=== PATIENT | female | born 1970 | race Caucasian/White ===

== ENCOUNTER 2018-02-18 12:04 | Emergency (ER) | payer OTHER, SELFPAY | END 2018-02-18 18:05 | disposition home or self-care (01) | DX: R07.9 Chest pain, unspecified (principal) | CPT/HCPCS: 36415; 71010; 71045; 80053; 84484; 85025; 85379; 85610; 93005; 93010; 96360; 99058; 99285 ==

== ENCOUNTER 2019-05-31 10:51 | Emergency (ER) | payer OTHER, SELFPAY ==
[2019-05-31 10:52] VITALS: BP 127/86; PULSE 90; RESP 18; TEMP 36.7; O2SAT 100
[2019-05-31 11:30] VITALS: BP 115/81; PULSE 75; O2SAT 100
[2019-05-31] MEDS: predniSONE 20 MG TABLET 40 MG PO (11:52)
[2019-05-31] MEDS: diphenhydrAMINE 25 MG TABLET 50 MG PO (11:52)
[2019-05-31 12:30] VITALS: BP 122/77; PULSE 65; RESP 17; O2SAT 98
[2019-05-31 13:30] VITALS: BP 124/82; PULSE 68; RESP 18; O2SAT 98
--- NOTE | 2019-05-31 23:14 | ED.ALLEREA ---
HPI - Allergic Reaction < PATRICK Zacarias - Last Filed: 05/31/19 23:38> General Chief complaint: Allergic Reaction Stated complaint: Rash On stomach,Chest pain Time Seen by Provider: 05/31/19 11:23 Source: patient and family Mode of arrival: ambulatory Limitations: no limitations History of Present Illness HPI narrative: This is a 48 year old female, nonsmoker, presents with her spouse with mildly pruritus, fine macular/papular rash in her upper body and upper legs and arms. She noticed when she woke up this morning. Denies dyspnea, short of breath, oropharyngeal swelling, chest pain. She denies exposure to new food, medication, skin products, detergents. She had used Benadryl cream and Xyzal this morning. Related Data Home Medications Medication Instructions Recorded Confirmed CHOLECALCIFEROL (VITAMIN D3) #0 05/08/12 (Vitamin D) Esterified Estrogens/Methylt- 1 tab PO QDAY #0 05/08/12 (#ESTRATEST) SALMETEROL XINAFOATE (SEREVENT 1 puff INH BIDRT #0 05/08/12 DISKUS) fluticasone propionate [Flovent 2 spray INH BID #0 05/08/12 HFA] loratadine [Claritin] 10 mg PO QDAY #0 05/08/12 Previous Rx's Medication Instructions Recorded prednisone 40 mg PO DAILY 5 Days #10 tab 05/31/19 ranitidine HCl [Zantac] 150 mg PO DAILY #7 tab 05/31/19 Allergies Allergy/AdvReac Type Severity Reaction Status Date / Time iodine [IODINE] Allergy Severe ANAPHYLAXIS Verified 05/31/19 11:07 shellfish derived Allergy Mild N/V Verified 05/31/19 11:07 [SHELLFISH DERIVED] aspirin [ASPIRIN] AdvReac Mild N/V Verified 05/31/19 11:07 etodolac [From LODINE] AdvReac Mild N/V Verified 05/31/19 11:07 meperidine [From DEMEROL] AdvReac Mild N/V Verified 05/31/19 11:07 oxycodone [OXYCODONE] AdvReac Mild N/V Verified 05/31/19 11:07 venom-honey bee AdvReac Mild N/V Verified 05/31/19 11:07 [BEE VENOM (HONEY BEE)] Review of Systems <PATRICK Steel - Last Filed: 05/31/19 23:38> Review of Systems General: Denies fever, chills, fatigue, malaise, sweats. HEENT: Denies sinus pain, ear pain, sore throat, difficulty swallowing, dizziness. Respiratory: Denies dyspnea, cough, wheezing, hemoptysis, sputum. Cardiovascular: Denies chest pain, palpitations, orthopnea, edema. Gastrointestinal: Denies nausea, vomiting, abdominal pain, diarrhea, constipation, melena. : Denies dysuria, frequency, incontinence, hematuria, urinary retention. Musculoskeletal: Denies weakness, joint pain or bony pain. Skin: See HPI Neurologic: Denies weakness, headache, numbness, change in speech, confusion, seizures, incoordination. Psychiatric: No concerning psychosocial issues. 12-point review of systems is negative except for those stated above. PFSH <PATRICK Steel - Last Filed: 05/31/19 23:38> Medical History Osteoarthritis (Acute) Seasonal allergic reaction (Acute) History of hysterectomy (Chronic) Surgical History History of appendectomy (Chronic) Social History Smoking Status: Never smoker Social History Smoking Status: Never smoker Exam <PATRICK Steel - Last Filed: 05/31/19 23:38> Narrative Exam Narrative: GEN: Alert, oriented x 3, well appearing and nourished, and in no acute distress. Head: Normal cephalic, atraumatic. No scalp or temporal tenderness, palpable mass or rash. EYES: Pupils are equal, round, and reactive to light and accommodation. Extraocular muscles are intact bilaterally. There is no subconjunctival hemorrhage, exudate and sclera non-icteric. ENT: Bilateral auditory canals. Nose without bleeding, purulent discharge, septal hematoma or deviation. Turbinate without erythema or swelling. Facial sinuses nontender to palpate. Mucous membrane moist, no mucosal lesion. Throat without erythema, tonsillar hypertrophy or exudate. Uvula in midline, airway patent. Neck: Trachea in midline. No JVD, non-tender without lymphadenopathy. No masses or thyroid megaly. Supple, non-tender and no meningeal signs. CARDIAC: Normal regular rate and rhythm without murmurs, gallops, or rubs. No chest wall tenderness. No peripheral edema, cyanosis or pallor. Capillary refill is less than 2 seconds. RESPIRATORY: Lungs are cleat to auscultate bilaterally. No cough, wheezes, rales, or rhonchi. No stridor, respiratory distress, increase work of breathing, or accessary muscle used. ABD: Abdomen soft, nontender and non-distended. No guarding or rebound tenderness to palpate. Bowel sounds are normal in all 4 quadrants. There is no palpable masses or organomegaly. EXT: Full painless ROM of all extremities with no loss of sensation, strength, effusion or edema. SKIN: Erythema, fine maculopapular rash in bilateral arms, back, chest and abdomen. BACK: Nontender without deformity or crepitance. No flank tenderness. NEUROLOGICAL: Alert and oriented to place, time and person. Sensation and motor function intact bilaterally. No facial droops, dysphasia. PSYCHIATRIC: Good judgement and reason, without hallucinations, abnormal affect or abnormal behaviors during the examination. Initial Vital Signs Initial Vital Signs: Vital Signs Temperature 98.1 F 05/31/19 10:52 Pulse Rate 90 05/31/19 10:52 Respiratory Rate 18 05/31/19 10:52 Blood Pressure 127/86 05/31/19 10:52 Pulse Oximetry 100 05/31/19 10:52 <Robe Justice DO - Last Filed: 06/01/19 19:23> Initial Vital Signs Initial Vital Signs: Vital Signs Temperature 98.1 F 05/31/19 10:52 Pulse Rate 90 05/31/19 10:52 Respiratory Rate 18 05/31/19 10:52 Blood Pressure 127/86 05/31/19 10:52 Pulse Oximetry 100 05/31/19 10:52 Course <PATRICK Steel - Last Filed: 05/31/19 23:38> Orders Ordered: Discontinued Medications Diphenhydramine HCl (Benadryl) 50 mg PO NOW ONE Stop: 05/31/19 11:34 Last Admin: 05/31/19 11:52 Dose: 50 mg Prednisone (Deltasone) 40 mg PO NOW ONE Stop: 05/31/19 11:34 Last Admin: 05/31/19 11:52 Dose: 40 mg Ranitidine HCl (Zantac) 150 mg PO NOW ONE Stop: 05/31/19 11:34 Last Admin: 05/31/19 11:52 Dose: 150 mg <Robe Justice DO - Last Filed: 06/01/19 19:23> Orders Ordered: Discontinued Medications Diphenhydramine HCl (Benadryl) 50 mg PO NOW ONE Stop: 05/31/19 11:34 Last Admin: 05/31/19 11:52 Dose: 50 mg Prednisone (Deltasone) 40 mg PO NOW ONE Stop: 05/31/19 11:34 Last Admin: 05/31/19 11:52 Dose: 40 mg Ranitidine HCl (Zantac) 150 mg PO NOW ONE Stop: 05/31/19 11:34 Last Admin: 05/31/19 11:52 Dose: 150 mg MDM - Allergic Reaction <PATRICK Steel - Last Filed: 05/31/19 23:38> Differential Diagnosis Differential diagnosis: Likely allergic reaction, contact dermatitis and viral enanthem Medical Records Attestation: I reviewed the patient's medical records. MDM Narrative Medical decision making narrative: This is a 48-year-old female who presents with markedly pruritic, fine, erythematous maculopapular rash on upper body, arms, groin areas that she noticed waking up this morning. She denies dyspnea, chest pain, short of breath, oropharyngeal swelling. She denies exposure to new detergent, skin products, foods, medications. She reports no one else has similar symptoms in her house. She denies constitutional symptoms, sore throat. She has taken her own Xyzal and Benadryl cream prior coming into ED. She was treated with oral Benadryl, Zantac, prednisone in ED to her rash as an allergy reaction to unknown substance. Her rash had gotten subsided and color was fading. She continued with no oropharyngeal swelling, dyspnea, chest pain during ED stay. The patient was discharged to home with a 5 day course of prednisone, Zantac and [id number]-[id number] Benadryl. The return precautions were discussed with the patient. There was no questions expressed at this time and the patient agreed with treatment plan. Discharge Plan Departure Patient Disposition: Home Clinical Impression: Rash and nonspecific skin eruption Discharge Date/Time: 05/31/19 13:45 Interventions: ED Discharge Assessment Last Done: 05/31/19 13:45 Instructions: DI for General Allergic Reactions, DI for Rash Activity Restrictions/Additional Instructions: You have been diagnosed with [ rash and possible allergic reaction ]. What to do: *Take your medications as directed. You're going home with prednisone, Zantac which you take it daily for next 5 days. You could use oawc-aql-vzhmewd Benadryl as needed 3 to 4 times a day. Benadryl can cause drowsiness so please take precaution. Prednisone could upset her stomach and elevate your blood sugar. *Follow up with your primary care provider in 2-3 days, call for an appointment. Let them know you were seen in the ED and that we asked you to be seen in follow up. *Return to ED if you have any new, worsening, or concerning symptoms, such as [swelling to throat/lips, difficulty breathing, chest pain, fainting, unable to tolerate fluids, worsening rash, any acute concerns]. Prescriptions: New prednisone 20 mg tablet 40 mg PO DAILY 5 Days Qty: 10 RF: 0 ranitidine HCl [Zantac] 150 mg tablet 150 mg PO DAILY Qty: 7 RF: 0 No Action loratadine [Claritin] 10 MG tablet 10 mg PO QDAY Qty: 0 RF: 0 fluticasone propionate [Flovent HFA] 12 GM HFA aerosol inhaler 2 spray INH BID Qty: 0 RF: 0 Esterified Estrogens/Methylt- (#ESTRATEST) 1 tab PO QDAY Qty: 0 RF: 0 SALMETEROL XINAFOATE (SEREVENT DISKUS) 1 puff INH BIDRT Qty: 0 RF: 0 CHOLECALCIFEROL (VITAMIN D3) (Vitamin D) Qty: 0 RF: 0 Referrals: Natalie Daigle MD [Non-Staff] - Stand Alone Forms: Work Release Note <Robe Justice DO - Last Filed: 06/01/19 19:23> [facility] ED Attending Faustinoature Attestation: I was available for consultation during this patient's emergency department encounter
== END 2019-05-31 13:45 | disposition home or self-care (01) ==
PROVIDERS: Emergency Provider Nurse Practitioner Family
DX: R21 Rash and other nonspecific skin eruption (principal)
CPT/HCPCS: 93005; 99283

== ENCOUNTER → 2021-08-19 10:01 | Outpatient (CLI) | payer OTHER, SELFPAY ==
[2021-08-19 15:18] LABS: COVID19 -Nasal RAPID Negative (Negative)
== END ==
PROVIDERS: PCP Physician Assistant Medical; Visit Provider Nurse Practitioner Family
DX: Z20.822 Contact with and (suspected) exposure to COVID-19 (principal); Z01.812 Encounter for preprocedural laboratory examination
CPT/HCPCS: 87635

== ENCOUNTER 2021-08-21 06:15 | Observation (INO) | payer OTHER, SELFPAY ==
[2021-08-19 12:54] VITALS: BMI 23.1
[2021-08-21] VITALS (16 sets, daily range): BP systolic 111–140; BP diastolic 77–94; PULSE 69–117; RESP 16–26; TEMP 36.4–37.4; O2SAT 97–100; BMI 23.1
--- NOTE | 2021-08-21 | DI.RAD.S_ITS ---
PROCEDURE: XR CERVICAL SPINE 2V OR 3V INDICATIONS: ACDF TECHNIQUE: 2 fluoroscopic images of the cervical spine. COMPARISON: None. FINDINGS/IMPRESSION: Two fluoroscopic images of the cervical spine demonstrate anterior cervical fixation and discectomy at C4-7. Dictated by: Usama Mendieta M.D. on 08/21/2021 at 10:44 Approved by: Usama Mendieta M.D. on 08/21/2021 at 10:44
[2021-08-21] MEDS: LACTATED RINGERS 1,000 ML 42 ML IV ×2 (07:21→09:28)
[2021-08-21] MEDS: ACETAMINOPHEN 325 MG TABLET 650 MG PO ×3 (07:22→22:19)
--- NOTE | 2021-08-21 07:40 | PM.PREOP ---
Pre-operative Note COVID-19 COVID-19 status: Negative Result date/Date tested (Pos, Neg/Pending): 08/19/21 Interval Note History & Physical reviewed/Exam performed by Physician: Yes Changes to H&P: No
[2021-08-21] MEDS: CEFAZOLIN 1 GM VIAL 2 GM IV (08:01)
--- NOTE | 2021-08-21 08:32 | SUR.OPER ---
Supine, head on gel donut. Arms padded with gel pads, tucked at sides, towel roll under shoulders. Safety belt at thigh. Legs uncrossed. Silk tape from bilateral shoulders to end of bed with traction.
[2021-08-21] MEDS: BUPIVACAINE 0.25% (PF) 30 ML, EPINEPHrine 0.3 MG INJ (08:41)
--- NOTE | 2021-08-21 08:46 | SUR.OPER ---
0720 Test patch of betadine solution applied to patients left forearm. Returned to check on patient at 0740. No reaction noted to test patch, patient denies any itching. Explained to patient that betadine prep would be used and then wiped with sterile alcohol afterwards.
--- NOTE | 2021-08-21 10:53 | P.OP_ITS ---
Operative Date/Time/Diagnoses Date of procedure: 08/21/21 Time of procedure: 08:00 Pre-op diagnosis: 1. C4-5, C5-6, C6-7 spinal stenosis 2. Cervical spondylosis with radiculopathy Post-op diagnosis: same Procedure & Clinicians Procedure: 1. C4-5 C5-6 C6-7 anterior cervical diskectomy and fusion 2. C4-5 C5-6 C6-7 anterior interbody cage placement 3. C4-5 C5-6 C6-7 anterior instrumentation with plate and screw placement in C4-C5-C6 and C7 vertebrae 4. Utilization of microsurgical technique and operating microscope Same procedure as scheduled: Yes Indications: Patient has been having chronic neck pain and worsening cervical radiculopathy. Patient failed multiple conservative management with worsening pain weakness and numbness in her upper extremity. Patient has been having difficulty performing activity of daily living. After discussing risks benefits of treatment options, patient elected proceed with surgery. Surgeon: Annamarie Luna Counselor At Law: Katharine Vizcaino Click Yes if Unassisted: No Anesthesia Type: General Operative Notes Closure Type: primary Specimen(s): none sent Prosthetic devices, grafts, tissues, transplants, or devices: Globus extend plate, PEEK cages Applied: catheter Estimated Blood Loss (mL): 10 Blood products transfused: none Procedure in detail: Patient was seen in the preoperative area. Risks and benefits of the surgery was discussed with the patient. Operative consent was obtained and placed in the chart. Patient was then taken to the operative room. Prophylactic antibiotic was given less than 0.5 hr prior to skin incision. General anesthesia was administered. Patient was placed into a supine position on her radiolucent table. Bilateral shoulders were taped down to allow proper C- arm imaging. Anterior cervical area was prepped and draped in a sterile fashio n. Time-out was performed at this time. Using lateral C-arm imaging, the level between C4 and C7 was identified and marked on patient's neck. A oblique incision from midline towards medial border of sternocleidomastoid muscle was made. The platysma muscle was incised in line with skin incision. Metzenbaum scissor was used to develop the plane between the medial border of sternocleidomastoid d and the strap muscles medially. The carotid sheath and its contents were identified and protected behind the hand- held retractor during the entire case. The plane between the carotid sheath and strap muscles was developed with Metzenbaum scissors. Dissection was made down to the level of the anterior cervical fascia. Longus colli muscle was incised on the anterior aspect of vertebral bodies bilaterally from C4-C7. Spinal needle was placed into the C4-5 disc space and confirmed with lateral C-arm imaging. Using microsurgical technique and operative microscope, anterior cervical diskectomy was performed at C4-5 C5-6 and C6-7 level. This was done by removing the disc material, removing the anterior and posterior osteophytes posterior longitudinal ligaments along with performing bilateral foraminotomies at all 3 levels. Patient was found to have severe central and foraminal stenosis at all 3 levels. Patient's stenosis was fully decompressed after decompression was completed. After the diskectomy was completed, 3 anterior interbody cages were obtained. The cages were packed with DBM bone grafting material. One cage each along with the bone grafting material was then packed into the interbody spaces from C4-C7 with one cage into each interbody level. After the cages were placed, the anterior cervical plate was stabilized to the C4-C7 vertebrae using 2 screws at each each level. Total 8 screws were placed. After confirming placement of the hardware with AP and lateral C-arm imaging, the screws were locked into the plate using the locking mechanism and torque limiting screwdriver. After the hardware was placed and confirmed with AP and lateral C-arm imaging, the wound was irrigated with sterile normal saline. The platysma muscle and the subcutaneous tissue was closed with 2-0 Vicryl. The skin was closed with 4-0 Monocryl and Steri-Strips. Patient tolerated the procedure well. Patient was transferred recovery room in stable condition. There were no complications. Complications: none Post-operative Condition: stable Disposition: PACU Plan for aftercare: Admit to inpatient hospital
--- NOTE | 2021-08-21 11:09 | SUR.PHASEI ---
Patient to PACU after general anesthesia with Dr Jaramillo breathing unassisted on room air. Soft collar in place, Trachea midline.
--- NOTE | 2021-08-21 11:24 | SUR.PHASEI ---
Dr rosen at bedside. Updated MD on patient denying pain and nausea at this time. HR 100-110. Pt okay to transfer to acute care with this HR.
[2021-08-21] MEDS: KETOROLAC 30 MG/ML VIAL 15 MG IV (11:35)
--- NOTE | 2021-08-21 12:10 | SUR.PHASEI ---
Patient transferred to room 218 in bed with this Rn awake and alert. Family at bedside. Bed in low position. Call light in reach. Dressing evaluation and trachea at midline checked with Sasha Lester. SBAR report given to RN.
[2021-08-21] MEDS: SODIUM CHLORIDE 0.9% 1,000 ML 100 ML IV (12:34)
[2021-08-21] MEDS: SODIUM CHLORIDE 0.9% FLUSH 10 ML IV ×2 (12:46→23:45)
--- NOTE | 2021-08-21 14:25 | PT.IIE ---
Current Diagnoses Other spondylosis with radiculopathy, cervical region (08/21/21) Spinal stenosis, cervical region (08/21/21) Surgery Performed Operation Date: 08/21/21 07:45 Actual Procedures p C4-5, C5-6, C6-7 ACDF w. anterior instrumentation - Annamarie Luna MD Medical History (Last Updated 08/19/21 @ 13:17 by Rosa Drake RN) Anxiety Arthritis Asthma Depression Easy bruisability IBS (irritable bowel syndrome) Osteoarthritis Seasonal allergic reaction TMJ (dislocation of temporomandibular joint) Physical Therapy Inpatient Evaluation/Re-Eval M1 PT/OT-IP Prior Functional Status Start: 08/21/21 16:51 Freq: NEEDED Status: Active Protocol: Document 08/21/21 16:51 [facility] (Rec: 08/21/21 17:04 [facility] [id number]) Medical Review Prior Functional Status Communication Independent Mobility and Gait Pt states was independent to walk without a device prior. Activities of Daily Living and IADL's Pt states able to manage ADL and IADL needs on her own but having difficulty to raise up her arms when washing her hair or doing tasks overhead. Social History Household Members spouse,children Living Arrangements House Number of Floors (Floors) One Floor Number of Stairs To Enter/Railing? Pt states has one step to get into the house. Home Environment High Toilet,Walk in Shower Home Equipment Front Wheel Walker,Straight Cane,Shower Seat without Backrest,Hand Held Shower,Grab Bars Near Toilet Additional Social History Comment Pt's , Damir will be home to assist the pt. M2 PT-IP Current Condition Start: 08/21/21 16:58 Freq: NEEDED Status: Active Protocol: Document 08/21/21 14:25 AB (Rec: 08/21/21 17:08 AB [id number]) Physical Therapy Current Condition Current Condition Evaluation Date 08/21/21 Treatment Diagnosis s/p C4-5,5-6, 6-7 ACDF; difficulty in walking Onset Date 08/21/21 M3 PT-IP Subjective Start: 08/21/21 16:58 Freq: NEEDED Status: Active Protocol: Document 08/21/21 14:25 AB (Rec: 08/21/21 17:08 AB [id number]) Subjective Physical Therapy Visit Type Type Initial Evaluation Visit Start Time 14:25 Visit Stop Time 15:00 Total Visit Minutes 35 Number of [employer] Visits 0 Physical Therapy Visit Comments Patient Comments pt is agreeable to do PT Therapy Pain Assessment Pain When Pain Assessed At Rest Pain Present Pain Present Pain Reported Location Lower Back Intensity 6 Scale Used Numeric (0 - 10) Neck Pain Management Techniques Modification of Treatment,Re- positioning,Timing of Activity with Medications M4 PT-IP Mobility and Gait Start: 08/21/21 16:58 Freq: NEEDED Status: Active Protocol: Document 08/21/21 14:25 AB (Rec: 08/21/21 17:08 AB [email or web address]) PT-Bed Mobility Assessment Rolling Type of Rolling Log Rolling Level of Assist Minimal Assistance Supine to Sit Supine to Sit Minimal Assistance PT-Transfer Assessment Sit to and From Stand Sit to and from Stand Minimal Assistance,1 Person Assistance,Use of Upper Extremities Equipment Transfer Assistive Device None,Gait Belt Orthotic/Prosthetic Devices or Brace: Yes Transfers Transfer Destination Chair Transfer Technique ambulated without AD Transfer Ability Level of Assist Minimal Assistance,1 Person Assistance,Use of Upper Extremities Comments Mobility Comments educated pt on cervical precautions and log roll bed mobility. completed supine to sit min A and cues. pt was able to sit on EOB SBA. educated spouse on soft collar management and completed. pt completed sit to stand min A and ambulated in room without AD min A but tends to told on to bed/counter for support. presents with very guarded slow paced gait. pt agreed to sit on chair. positioned on chair. call light and table placed within reach. Left pt with spouse in room. Gait Assessment Gait Gait Assistance Required: Minimum Assistance Distance (Feet) 12 Able to Maintain Weight Bearing Status Yes During Gait Assistive Devices Assistive Device None,Gait Belt Orthotic/Prosthetic Devices or Brace: Yes Gait Deviations General Gait Pattern Decreased Stride Length, Decreased Feet Clearance,Step- to Gait Factors Limiting Gait Function Factors Limiting Gait Function Decreased Activity Tolerance, Decreased Strength,Limited Range of Motion,Pain,Poor Balance,Poor Safety Awareness PT-Balance Assessment Sitting Balance and Reactions Static Sitting Balance Ability Good Dynamic Sitting Balance Ability Fair Standing Balance and Reactions Static Standing Balance Ability Fair Dynamic Standing Balance Ability Poor Device Used without AD M5 PT-IP Objective Assessments Start: 08/21/21 16:58 Freq: NEEDED Status: Active Protocol: Document 08/21/21 14:25 AB (Rec: 08/21/21 17:08 AB [email or web address]) Orientation Orientation/Cognition Level of Alertness Alert Orientation Name,Place,Situation Language Function Ability No Deficits Noted Safety Awareness Decreased Safety Awareness Memory Description No Deficits Noted Gross Range of Motion Lower Extremity ROM Assessment Within Functional Limits Strength Lower Extremity Strength Assessment Within Functional Limits Sensation Assessment Sensation Gross Sensation WNL Muscle Tone Muscle Tone WNL Yes M6 PT-IP Treatment Start: 08/21/21 16:58 Freq: NEEDED Status: Active Protocol: Document 08/21/21 14:25 AB (Rec: 08/21/21 17:08 AB [id number]) Physical Therapy Treatment Education Education Provided Precautions,Weight Bearing Status,Post-Op Packet,Safety M7 PT-IP Assessment and Plan Start: 08/21/21 16:58 Freq: NEEDED Status: Active Protocol: Document 08/21/21 14:25 AB (Rec: 08/21/21 17:08 AB [email or web address]) PT Summary Assessment and Plan Potential Rehabilitation Potential Good Status of Condition at Evaluation Evolving Summary Impairments Pain,ROM,Strength,Balance, Coordination,Sensation,Tone, Cognition,Bed Mobility, Transfers,Gait,Activity Tolerance Assessment Summary pt s/p C4-7 ACDF POD 0. pt requiring min A with mobility and presents with unsteady guarded gait without AD. will need further assessment for safe d/c plan and need for AD use for ambulation but pt will likely progress during hospital stay. pt plans to go home and spouse will assist pt at home. caregiver training initiated with soft collar management and spouse was able to assist pt with soft collar. will continue to assess progress. Goals Bed Mobility Goal Independent Transfer Goal Independent,Front Wheeled Walker Gait Goal Independent,Front Wheel Walker Gait Distance 200 Other Goals ambulation without AD 250 ft SBA up/down 1 step using FWW/ without AD SBA Days to Meet Goals 5 Frequency of Treatment Frequency Of Treatment Twice a Day Treatment Plan Physical Therapy Treatment Plan Bed Mobility Training,Transfer Training,Gait Training, Therapeutic Exercise,Balance Retraining,Post Op Education, Discharge Planning,Hot or Cold Pack,Neuromuscular Re-ed, Coordination Retraining,Manual Therapy Precautions Cervical Spine Precautions Soft Collar for Comfort,No Heavy Lifting,Log Roll Recommendations To Nursing Amount of Assist Needed 1 Person Assist Discharge Recommendations PT Discharge Recommendations Home with Assistance Transportation Needs at Discharge Private Vehicle
--- NOTE | 2021-08-21 15:05 | OT.IP.EVAL ---
Current Diagnoses Other spondylosis with radiculopathy, cervical region (08/21/21) Spinal stenosis, cervical region (08/21/21) Surgery Performed Operation Date: 08/21/21 07:45 Actual Procedures p C4-5, C5-6, C6-7 ACDF w. anterior instrumentation - Annamarie Luna MD Past Medical History (Last Updated 08/19/21 @ 13:17 by Rosa Drake, RN) Anxiety Arthritis Asthma Depression Easy bruisability History of appendectomy History of hysterectomy Hx of hand surgery Hx of hand surgery IBS (irritable bowel syndrome) Osteoarthritis Seasonal allergic reaction TMJ (dislocation of temporomandibular joint) Surgical History (Last Updated 08/19/21 @ 13:17 by Rosa Drake RN) History of appendectomy History of hysterectomy Hx of hand surgery Hx of hand surgery Occupational Therapy Inpatient Evaluation/Re-Eval M1 PT/OT-IP Prior Functional Status Start: 08/21/21 16:51 Freq: NEEDED Status: Active Protocol: Document 08/21/21 16:51 [facility] (Rec: 08/21/21 17:04 [facility] [id number]) Medical Review Prior Functional Status Communication Independent Mobility and Gait Pt states was independent to walk without a device prior. Activities of Daily Living and IADL's Pt states able to manage ADL and IADL needs on her own but having difficulty to raise up her arms when washing her hair or doing tasks overhead. Social History Household Members spouse,children Living Arrangements House Number of Floors (Floors) One Floor Number of Stairs To Enter/Railing? Pt states has one step to get into the house. Home Environment High Toilet,Walk in Shower Home Equipment Front Wheel Walker,Straight Cane,Shower Seat without Backrest,Hand Held Shower,Grab Bars Near Toilet Additional Social History Comment Pt's , Damir and son will be home to assist the pt. M2 OT-IP Current Condition Start: 08/21/21 16:51 Freq: Status: Active Protocol: Document 08/21/21 16:51 [facility] (Rec: 08/21/21 17:04 [facility] [id number]) Occupational Therapy Current Condition Current Condition Evaluation Date 08/21/21 Treatment Diagnosis S/p C4-C7 ACDF, decreased mobility Diagnosis Onset Date 08/21/21 Post Operative Precautions Cervical Spine Precautions Soft Collar for Comfort,No Heavy Lifting,Log Roll M3 OT- IP Subjective and Pain Start: 08/21/21 16:51 Freq: Status: Active Protocol: Document 08/21/21 16:51 [facility] (Rec: 08/21/21 17:04 [facility] [id number]) OT- Subjective Occupational Therapy Visit Type Type Initial Evaluation Visit Start Time 15:05 Visit Stop Time 15:27 Total Visit Minutes 22 Occupational Therapy Visit Comments Patient Comments Pt's , Damir present in the room. Patient/Caregiver Goals TO go home. OT Pain Assessment Pain When Pain Assessed At Rest Pain Present Pain Present Pain Reported Location Neck Intensity 2 Scale Used Numeric (0 - 10) M4 OT- IP ADL's Start: 08/21/21 16:51 Freq: Status: Active Protocol: Document 08/21/21 16:51 [facility] (Rec: 08/21/21 17:04 [facility] [id number]) OT [id number] Comments OT Self-Feeding Comments Went over information regarding swallowing needs after cervical surgery and pt states good understanding. OT ADL-Grooming Comments OT Grooming Comments Not performed. OT ADL-Oral Care Comments Oral Care Comments Educated best to spit into a cup. OT ADL-Dressing General Eval Lower Body Dressing Ability Standby Assistance Comments OT Dressing Comments Pt able to comfortable cross her legs to be able to take on and off her socks while seated. Pt states able to suraj/doff the soft collar prior during PT session. OT ADL-Toileting General Evaluation Toileting Ability Total Assistance Areas Needing Assistance Empty Catheter or Colostomy Comments OT Toileting Comments Catheter still in place. Educated pt to be mindful of her head positioning while wiping to be sure not to move her head too much. Educated wearing a pad at night may be helpful to ensure that she does not have to montoya to the bathroom. OT ADL-Bathing Comments OT Bathing Comments not performed M5 OT- IP IADL's Start: 08/21/21 16:51 Freq: Status: Active Protocol: Document 08/21/21 16:51 [facility] (Rec: 08/21/21 17:04 [facility] [id number]) OT-Instrumental Activities of Daily Living Deficits IADL Deficits Identified Deficits Home Safety Awareness Awareness of Need for Assistance at Home Good Awareness Ability to Problem Solve Emergency Able to Problem Solve Situations Home Safety Comments Pt's to be there to proved supervision and assist as needed. M6 OT- IP Functional Cognition Start: 08/21/21 16:51 Freq: Status: Active Protocol: Document 08/21/21 16:51 [facility] (Rec: 08/21/21 17:04 [facility] [id number]) Cognitive Factors Limiting Selfcare Function Cognitive Ability Level of Alertness Alert Patient Orientation Name,Age,Birthday,Month,Date, Year,Day of Week,Place, Situation Attention Span Ability Capable of Focused Attention, Capable of Sustained Attention Ability to Follow Commands Able to Follow Multi-Step Commands Memory Description No Deficits Noted Safety Awareness No Deficits Noted Problem Solving Ability No deficits Noted Cognitive Comments Cognitive Assessment Comments Pt appears intact on OT eval with no cognitive deficits, to continue to assess. OT- Vision and Hearing OT- Hearing Assessment OT- Hearing Assessment WFL OT- Vision Assessment Visual Acuity Glasses All The Time M7 OT- IP Mobility and Balance Start: 08/21/21 16:51 Freq: Status: Active Protocol: Document 08/21/21 16:51 [facility] (Rec: 08/21/21 17:04 [facility] [id number]) OT-Transfer Assessment Sit to and From Stand Sit to and from Stand Contact Guard Assistance Transfers Transfer Ability Minimal Assistance Technique Transfer Destination Chair Devices Transfer Assistive Devices None,Gait Belt Comments Mobility Comments Pt not wanting to get back in bed. Pt able to stand with CGA with no device and able to walk around n the room with LEE for occasional steadying. Pt not wanting to try a device at this time. OT- Gait Assessment Comments Gait Ability Comments LEE with gait belt in the room. OT- Balance Assessment Sitting Balance and Reactions Static Sitting Balance Ability Normal Dynamic Sitting Balance Ability Good Standing Balance and Reactions Static Standing Balance Ability Fair M8 OT- IP Objective Assessments Start: 08/21/21 16:51 Freq: Status: Active Protocol: Document 08/21/21 16:51 [facility] (Rec: 08/21/21 17:04 [facility] [id number]) OT Gross Range of Motion Upper Extremity Range of Motion Assessment Bilaterally Impaired OT Strength Upper Extremity Strength Assessment Bilaterally Impaired M9 OT- IP Assessment and Plan Start: 08/21/21 16:51 Freq: Status: Active Protocol: Document 08/21/21 16:51 [facility] (Rec: 08/21/21 17:04 [facility] [id number]) OT Summary Assessment and Plan Potential Rehabilitation Potential Good Analytic Complexity at Evaluation Low Summary OT Impairments Range of Motion,Strength, Balance,Functional Mobility, Grooming,Dressing,Toileting, Bathing,Toilet Transfers, Shower Transfers,Activity Tolerance Progress Towards Goals Progressing Toward Goals Assessment Summary Pt low complexity and main barriers are a step, needing LEE for steadying while on her feet and will need at least minimal assist for ADL needs and assist for IADl needs . Pt has a supportive to provide assist at home when medically stable. Goals Grooming Goal Independent Dressing Goal Independent Toileting Goal Independent Bathing Goal Independent Toilet Transfer Goal Independent Shower Transfer Goal Independent Patient/Caregiver Education Goal Caregiver Independent Assisting Patient Days to Meet Goals 5 Frequency of Treatment Frequency Of Treatment Once a Day Treatment Plan OT Treatment Plan ADL Training,Functional Mobility,Patient/Family Education,Discharge Planning Other Treatment Recommendations and Next shower Treatment Focus Discharge Recommendations OT Discharge Recommendations Home with Assistance Transportation Needs at Discharge Private Vehicle
--- NOTE | 2021-08-21 15:44 | PC.NURSE ---
AM shift note. pt arrived to room ~1200. Guaze/Tegaderm to anterior neck, CDI and soft c-collar applied. NS started at 100/hr. Denying pain. Swallowing and tolerating water and jello. Dunham draining to gravity but pt reporting she still feels like she has the urge to void. I confirmed that there were no kinks in tubing. PT evaluated pt and gave her the okay to ambulate SBA. Per the nursing protocol and Dr. Luna's order I removed the Dunham, pt tolerated well. pt up SBA to BR to try and void. in room.
[2021-08-21] MEDS: hydrOXYzine pamoate 25 MG CAPSULE PO (16:56)
[2021-08-21] MEDS: CEFAZOLIN 1 GM VIAL IV ×2 (16:56→23:45)
[2021-08-21] MEDS: DOCUSATE 100 MG CAPSULE PO (21:06)
[2021-08-21] MEDS: SENNOSIDES 8.6 MG TABLET 17.2 MG PO (21:06)
[2021-08-22 00:32] VITALS: BP 126/90; PULSE 94; RESP 15; TEMP 36.1; O2SAT 98
[2021-08-22 03:40] VITALS: BP 137/99; PULSE 100; RESP 18; TEMP 37.5; O2SAT 97
[2021-08-22] MEDS: PANTOPRAZOLE DR 20 MG TABLET PO (06:37)
[2021-08-22] MEDS: ACETAMINOPHEN 325 MG TABLET 650 MG PO (06:39)
--- NOTE | 2021-08-22 07:49 | PM.DS.1 ---
History of Present Illness History of Present Illness Date Patient Seen: 08/22/21 Time Patient Seen: 07:49 Chief complaint: Neck pain s/p cervical fusion Narrative: The patient is complaining of azdy-fl-dcsrbpbu neck pain this morning. She is having mild difficulty swallowing. She has many allergies and is unable to tolerate narcotic pain medications. She denies any new numbness or tingling down her upper extremities. No fevers, chills, night sweats. No nausea or vomiting. Discharge Providers Provider Discharge Date: 08/22/21 Primary care physician: Lina Tay PA-C Consults: 08/21/21 11:49 Consult to Occupational Therapy Evaluate & Treat Comment: Physician Instructions: Evaluate and treat Consult to Physical Therapy Evaluate & Treat Comment: Physician Instructions: Evaluate and Treat Discharge provider: Katharine Vizcaino PA-C Summary Hospital Course Discharge Diagnosis: 1. C4-5, C5-6, C6-7 spinal stenosis 2. Cervical spondylosis with radiculopathy Hospital Course: Date of procedure: 08/21/21 Time of procedure: 08:00 Procedure & Clinicians Procedure: 1.? C4-5 C5-6 C6-7 anterior cervical diskectomy and fusion 2.? C4-5 C5-6 C6-7 anterior interbody cage placement 3.? C4-5 C5-6 C6-7 anterior instrumentation with plate and screw placement in C4-C5-C6 and C7 vertebrae 4.? Utilization of microsurgical technique and operating microscope Same procedure as scheduled: Yes Indications: Patient has been having chronic neck pain and worsening cervical radiculopathy. Patient failed multiple conservative management with worsening pain weakness and numbness in her upper extremity.? Patient has been having difficulty performing activity of daily living.? After discussing risks benefits of treatment options, patient elected proceed with surgery. Surgeon: Annamarie Luna Machine Grinder: Katharine Vizcaino Click Yes if Unassisted: No Anesthesia Type: General Operative Notes Closure Type: primary Specimen(s): none sent Prosthetic devices, grafts, tissues, transplants, or devices: Globus extend plate, PEEK cages Applied: catheter Estimated Blood Loss (mL): 10 Blood products transfused: none Status at Discharge Cognitive/behavioral status at discharge: oriented Functional status at discharge: uses cane/walker Overall status at discharge: patient is progressing back to baseline Exam Vital Signs (past 8 hours): - 08/22/21 00:32 08/22/21 03:40 Temperature 97.0 F L 99.5 F Pulse Rate 94 H 100 H Respiratory Rate 15 18 Blood Pressure 126/90 137/99 H Pulse Oximetry 98 97 Oxygen Delivery Method Room Air Oxygen Flow Rate 0 Narrative Exam Narrative: Pleasant 50-year-old female, resting comfortably in bed, no acute distress. Dressing is clean, dry, intact. Bilateral upper extremity motor functions are grossly intact. She is grossly intact to light touch in bilateral upper extremities. [facility] Medical History Anxiety Arthritis Asthma Depression Easy bruisability IBS (irritable bowel syndrome) Osteoarthritis Seasonal allergic reaction TMJ (dislocation of temporomandibular joint) Surgical History History of appendectomy History of hysterectomy Hx of hand surgery Hx of hand surgery Social History household members: spouse and children Smoking Status: Former smoker alcohol intake: current Discharge Assessment & Plan Assessment and Plan Plan of Treatment: Stable status post cervical fusion -mobilize with PT. Limit bending, lifting, twisting. It -continue with current pain regimen of Tylenol, Mobic, and Vistaril. The patient is unable to tolerate many medications due to allergies -DC home today when cleared by PT. Discharge Plan Discharge Plan Patient Disposition: Home Discharge orders & Medications Discharge Orders: Discharge (Order); Ordered 08/22/21 Ordered By: Katharine Vizcaino Prescriptions: New acetaminophen 500 mg capsule 500 mg PO Q4H PRN (Reason: Pain, Mild (1-3)) Qty: 90 RF: 0 hydroxyzine pamoate 25 mg Capsule 25 mg PO Q4HR PRN (Reason: pain, spasms, nausea) Qty: 60 RF: 0 Continued salmeterol 50 mcg/dose Blister With Device 1 inh INHALATION QAM Qty: 0 RF: 0 loratadine [Claritin] 10 MG tablet 10 mg PO QDAY Qty: 0 RF: 0 Flovent HFA 12 GM HFA aerosol inhaler 2 spray INH QAM Qty: 0 RF: 0 meloxicam 7.5 mg Tablet 7.5 mg PO DAILY RF: 0 omeprazole 20 mg Capsule,Delayed Release(Dr/Ec) 20 mg PO DAILY RF: 0 azelastine 137 mcg (0.1 %) Aerosol,[place] 1 spray INTRANASAL QAM PRN (Reason: seasonal allergies) RF: 0 Follow up/Referrals: Annamarie Luna MD [Physician] - (10-14 days for postoperative visit) Lina Tay PA-C [Primary Care Provider] - Diet/Activity/Treatments Diet: Diet as Tolerated and Regular Other treatments: Medications: -OTC Tylenol 500 mg 1 tablet every 4 hours as needed for pain/fever. Max 6 tablets per day. -Mobic 7.5mg 1-2 tabs daily for pain/inflammation -Vistaril (hydroxyine) 25mg 1 tab every 4 hours as needed for spasms/pain/nausea. -As needed medications: -Ducolax and /or MiraLax as needed for constipation from narcotic pain medications. -Pepcid AC as needed for stomach upset. Dressing/Wound care: -Keep dressing in place until postoperative follow-up office visit. -Okay to shower. Keep wound out of direct water stream. Can use PressNSeal plastic wrap to protect from water. No soaking or submerging until all the scabs fall off (approximately 6 weeks). -Please call the office if dressing becomes wet, soiled, or saturated. Activities: -Limit bending, lifting, twisting. -Weight-bearing as tolerated. Use front wheeled walker, and progress to cane when safe. -Continue with home exercises as directed by your physical therapist. -Elevate ?toes above the nose if you have significant swelling in your lower leg. (A wedge pillow is easiest.) -Ice your incision as needed for pain/inflammation/swelling. Protect your skin with a folded pillowcase. Follow-up: -Follow-up with your surgeon or PA in the office in 10-14 days after surgery. -Follow-up with your surgeon 6 weeks postoperatively. Call the office if you have chest pain, shortness of breath, significant swelling that will not resolve with elevating, fever over 101?, significantly worsening pain. [facility]: [phone] Skin/Wound/Dressing Care Report to your healthcare provider any signs of infection, such as:: chills, fever, night sweats, unusual drainage and unusual redness Visit Report/Discharge Packet Instructions: DI for Anterior Cervical Discectomy and Fusion Stand Alone Forms: Surgery Discharge Discharge Data Primary Care Provider: Lina Tay Attending Provider: Annamarie Luna
[2021-08-22 08:11] VITALS: BP 134/90; PULSE 91; RESP 18; TEMP 36.6; O2SAT 95
[2021-08-22] MEDS: ALBUTEROL 2.5 MG/3 ML NEB (ADULT) INH (08:48)
[2021-08-22] MEDS: BUDESONIDE 0.5 MG/2 ML NEB INH (08:48)
[2021-08-22 08:53] VITALS: O2SAT 99
[2021-08-22] MEDS: DOCUSATE 100 MG CAPSULE PO (09:43)
[2021-08-22] MEDS: MELOXICAM 7.5 MG TABLET PO (09:44)
[2021-08-22] MEDS: LORATADINE 10 MG TABLET PO (09:44)
--- NOTE | 2021-08-22 10:35 | PT.IPTN ---
Current Diagnoses Other spondylosis with radiculopathy, cervical region (08/21/21) Spinal stenosis, cervical region (08/21/21) Surgery Performed Operation Date: 08/21/21 07:45 Actual Procedures p C4-5, C5-6, C6-7 ACDF w. anterior instrumentation - Annamarie Luna MD Physical Therapy Treatment Note M2 PT-IP Current Condition Start: 08/21/21 16:58 Freq: NEEDED Status: Discharge Protocol: Document 08/21/21 14:25 AB (Rec: 08/21/21 17:08 AB [id number]) Physical Therapy Current Condition Current Condition Evaluation Date 08/21/21 Treatment Diagnosis s/p C4-5,5-6, 6-7 ACDF; difficulty in walking Onset Date 08/21/21 M3 PT-IP Subjective Start: 08/21/21 16:58 Freq: NEEDED Status: Discharge Protocol: Document 08/22/21 10:35 AB (Rec: 08/22/21 13:07 AB [id number]) Subjective Physical Therapy Visit Type Type Treatment Note Visit Start Time 10:35 Visit Stop Time 10:50 Total Visit Minutes 15 Number of PARTS COUNTER SPECIALIST Visits 0 Physical Therapy Visit Comments Patient Comments agreeable to do PT Therapy Pain Assessment Pain When Pain Assessed At Rest Pain Present Pain Present Pain Reported Location Neck Intensity 5 Scale Used Numeric (0 - 10) Pain Management Techniques Modification of Treatment,Re- positioning,Timing of Activity with Medications M4 PT-IP Mobility and Gait Start: 08/21/21 16:58 Freq: NEEDED Status: Discharge Protocol: Document 08/22/21 10:35 AB (Rec: 08/22/21 13:07 AB [id number]) PT-Transfer Assessment Sit to and From Stand Sit to and from Stand Standby Assistance Equipment Transfer Assistive Device Gait Belt,Straight Cane Orthotic/Prosthetic Devices or Brace: Yes Comments Mobility Comments pt sitting on chair and agreed to do PT. spouse in room. pt stated that she is good with log roll bed mobility and does not want to do it again but agreed to do PT. completed sit to stand SBA. ambulated in room without AD ~ 20 ft CGA . steadier than yesterday but continues to be guarded and unsteady. pt agreed to use SPC. pt completed up/down platform step using SPC and spouse on other side and provided VISITING PROFESSOR. pt completed x 2 sets min A from spouse up/down platform step. pt ambulated in the hallway using SPC SBA to CGA ~ 200 ft . pt agreed to use SPC upon d /c and stated that she has one at home. pt sat back on chair. call light and table placed within reach. pt without any other concerns. Left with spouse in room. Gait Assessment Gait Gait Assistance Required: Standby Assistance,Contact Guard Assist Distance (Feet) 200 Able to Maintain Weight Bearing Status Yes During Gait Assistive Devices Assistive Device None,Gait Belt,Straight Cane Orthotic/Prosthetic Devices or Brace: Yes Gait Deviations General Gait Pattern Decreased Stride Length, Decreased Feet Clearance Factors Limiting Gait Function Factors Limiting Gait Function Decreased Activity Tolerance, Decreased Strength,Limited Range of Motion,Pain,Poor Balance,Poor Safety Awareness Stair Climbing Assessment Evaluation Level of Assist On Stairs Minimal Assistance,1 Person Assistance Devices Stair Climbing Assistive Devices Straight Cane Technique/Endurance Stair Climbing Direction Ascend and Descend Stair Climbing Technique Step to Step Number of Steps Climbed 1 Stair Climbing Set # Repetitions (reps) 2 M5 PT-IP Objective Assessments Start: 08/21/21 16:58 Freq: NEEDED Status: Discharge Protocol: Document 08/21/21 14:25 AB (Rec: 08/21/21 17:08 AB [id number]) Orientation Orientation/Cognition Level of Alertness Alert Orientation Name,Place,Situation Language Function Ability No Deficits Noted Safety Awareness Decreased Safety Awareness Memory Description No Deficits Noted Gross Range of Motion Lower Extremity ROM Assessment Within Functional Limits Strength Lower Extremity Strength Assessment Within Functional Limits Sensation Assessment Sensation Gross Sensation WNL Muscle Tone Muscle Tone WNL Yes M6 PT-IP Treatment Start: 08/21/21 16:58 Freq: NEEDED Status: Discharge Protocol: Document 08/22/21 10:35 AB (Rec: 08/22/21 13:07 AB [id number]) Physical Therapy Treatment Education Education Provided Precautions,Safety M7 PT-IP Assessment and Plan Start: 08/21/21 16:58 Freq: NEEDED Status: Discharge Protocol: Document 08/22/21 10:35 AB (Rec: 08/22/21 13:07 AB [id number]) PT Summary Assessment and Plan Potential Rehabilitation Potential Good Summary Impairments Pain,ROM,Strength,Balance, Coordination,Sensation,Tone, Cognition,Bed Mobility, Transfers,Gait,Activity Tolerance Progress Towards Goals Progressing Toward Goals Assessment Summary pt ambulated in room without AD but continues to have unsteady guarded gait and recommended using SPC at this time. Pt agreed. caregiver training also completed with spouse assisting pt and completed safely. pt plans to go home today. Goals Bed Mobility Goal Independent Transfer Goal Independent,Front Wheeled Walker Gait Goal Independent,Front Wheel Walker Gait Distance 200 Other Goals ambulation without AD 250 ft SBA up/down 1 step using FWW/ without AD SBA Days to Meet Goals 5 Frequency of Treatment Frequency Of Treatment Twice a Day Treatment Plan Physical Therapy Treatment Plan Bed Mobility Training,Transfer Training,Gait Training, Therapeutic Exercise,Balance Retraining,Post Op Education, Discharge Planning,Hot or Cold Pack,Neuromuscular Re-ed, Coordination Retraining,Manual Therapy Precautions Cervical Spine Precautions Soft Collar for Comfort,No Heavy Lifting,Log Roll Recommendations To Nursing Amount of Assist Needed 1 Person Assist Discharge Recommendations PT Discharge Recommendations Home with Assistance Transportation Needs at Discharge Private Vehicle
--- NOTE | 2021-08-22 11:04 | OT.IP.TRT ---
Current Diagnoses Other spondylosis with radiculopathy, cervical region (08/21/21) Spinal stenosis, cervical region (08/21/21) Surgery Performed Operation Date: 08/21/21 07:45 Actual Procedures p C4-5, C5-6, C6-7 ACDF w. anterior instrumentation - Annamarie Luna MD Occupational Therapy Treatment Note M2 OT-IP Current Condition Start: 08/21/21 16:51 Freq: Status: Discharge Protocol: Document 08/21/21 16:51 [facility] (Rec: 08/21/21 17:04 [facility] [id number]) Occupational Therapy Current Condition Current Condition Evaluation Date 08/21/21 Treatment Diagnosis S/p C4-C7 ACDF, decreased mobility Diagnosis Onset Date 08/21/21 Post Operative Precautions Cervical Spine Precautions Soft Collar for Comfort,No Heavy Lifting,Log Roll M3 OT- IP Subjective and Pain Start: 08/21/21 16:51 Freq: Status: Discharge Protocol: Document 08/22/21 10:50 [facility] (Rec: 08/22/21 12:15 [facility] [id number]) OT- Subjective Occupational Therapy Visit Type Type Treatment Note Visit Start Time 10:50 Visit Stop Time 11:04 Total Visit Minutes 14 Occupational Therapy Visit Comments Patient Comments Pt ready to go home and wanting to get dressed. Patient/Caregiver Goals TO go home. OT Pain Assessment Pain When Pain Assessed At Rest Pain Present Pain Present Pain Reported M4 OT- IP ADL's Start: 08/21/21 16:51 Freq: Status: Discharge Protocol: Document 08/22/21 10:50 [facility] (Rec: 08/22/21 12:15 [facility] [id number]) OT [id number] Comments OT Self-Feeding Comments Pt states has no issues with feeding needs. OT ADL-Grooming Comments OT Grooming Comments Not performed. OT ADL-Dressing General Eval Lower Body Dressing Ability Standby Assistance Comments OT Dressing Comments Pt able to do all dressing needs with crossing her legs comfortably after set-up. OT ADL-Toileting Comments OT Toileting Comments Pt states was able to use the bathroom earlier. OT ADL-Bathing Comments OT Bathing Comments not performed M5 OT- IP IADL's Start: 08/21/21 16:51 Freq: Status: Discharge Protocol: Document 08/21/21 16:51 [facility] (Rec: 08/21/21 17:04 [facility] [id number]) OT-Instrumental Activities of Daily Living Deficits IADL Deficits Identified Deficits Home Safety Awareness Awareness of Need for Assistance at Home Good Awareness Ability to Problem Solve Emergency Able to Problem Solve Situations Home Safety Comments Pt's to be there to proved supervision and assist as needed. M6 OT- IP Functional Cognition Start: 08/21/21 16:51 Freq: Status: Discharge Protocol: Document 08/22/21 10:50 [facility] (Rec: 08/22/21 12:15 [facility] [id number]) Cognitive Factors Limiting Selfcare Function Cognitive Comments Cognitive Assessment Comments Pt intact. M7 OT- IP Mobility and Balance Start: 08/21/21 16:51 Freq: Status: Discharge Protocol: Document 08/22/21 10:50 [facility] (Rec: 08/22/21 12:15 [facility] [id number]) OT-Transfer Assessment Sit to and From Stand Sit to and from Stand Standby Assistance Comments Mobility Comments Pt able to stand from the recliner on her own to do her dressing needs in front of the chair. OT- Gait Assessment Comments Gait Ability Comments Suggested would be beneficial to use FWW initially or when around her pets. M8 OT- IP Objective Assessments Start: 08/21/21 16:51 Freq: Status: Discharge Protocol: Document 08/21/21 16:51 [facility] (Rec: 08/21/21 17:04 [facility] [id number]) OT Gross Range of Motion Upper Extremity Range of Motion Assessment Bilaterally Impaired OT Strength Upper Extremity Strength Assessment Bilaterally Impaired M9 OT- IP Assessment and Plan Start: 08/21/21 16:51 Freq: Status: Discharge Protocol: Document 08/22/21 10:50 [facility] (Rec: 08/22/21 12:15 [facility] [id number]) OT Summary Assessment and Plan Potential Rehabilitation Potential Good Analytic Complexity at Evaluation Low Summary Progress Towards Goals Safe For Discharge Assessment Summary Pt going home today and able to follow good safety and demonstration for all cervical precautions. Pt has a supportive to asisst at home. Discharge Recommendations OT Discharge Recommendations Home with Assistance Transportation Needs at Discharge Private Vehicle
--- NOTE | 2021-08-22 11:27 | PC.NURSE ---
A&Ox4. VSS. Pain reported 4/10 in neck and throat, patient stated it is painful to swallow. Scheduled meloxicam therapeutic. Room air, SCDs removed for activity. Approved my PT and OT for discharge. IV removed. Discharge paperwork reviewed. Questions answered. Wheeled off of unit at 11:20. driving home.
--- NOTE | 2021-08-22 11:38 | CM.IDA ---
Initial DCP Assessment Note Pt is a 50 yo female, resident of [place], now POD#[address] fusion [address] Luna. DC home today PCP: Lina Tay Payer: [facility] Reviewed chart, pt discussed in multidisciplinary rounds this morning. Therapy has cleared pt for return home w/family to assist and pt has planned for home, DC order from Ortho has already been initiated this morning. Met w/patient, introduced role. Patient confident about return home w/spouse to assist. No needs expected from DC planning team although will remain available in case this changes today. STEPHY Wang Discharge Planning/Care Management CM Discharge Assessment Start: 08/22/21 11:28 Freq: Status: Discharge Protocol: Document 08/22/21 11:28 [facility] (Rec: 08/22/21 11:38 [facility] [id number]) Discharge Planning Assessment Assigned Pattern Marking Supervisor STEPHY Goode DPOA/Assigned Designee Name Nitish Brown, spouse Contact Information [phone] Advance Directives? No History Provided By Patient Prior Living Arrangements House Household Members spouse,children Type of transporation used prior to Drives own vehicle admit Independent with ADL's Yes Is patient alert and oriented? Yes Barriers to Discharge No Discharge Plan Home Transportation Arrangement Family Referrals Initiated None needed Additional Comment Home w/family to assist, no need for HH. Cleared by therapies
== END 2021-08-22 11:20 | disposition home or self-care (01) ==
LOC: OR 06:16 → AC 06:16
PROVIDERS: Admitting Provider Orthopaedic Surgery Orthopaedic Surgery of the Spine; PCP Physician Assistant Medical; Referring Provider Orthopaedic Surgery Orthopaedic Surgery of the Spine; Visit Provider Orthopaedic Surgery Orthopaedic Surgery of the Spine
PROC: (CPT 22551; principal; 2021-08-21 07:45)
DX: M48.02 Spinal stenosis, cervical region (principal); M47.22 Other spondylosis with radiculopathy, cervical region; J45.909 Unspecified asthma, uncomplicated; K21.9 Gastro-esophageal reflux disease without esophagitis; F41.9 Anxiety disorder, unspecified
CPT/HCPCS: 22551; 22552 ×2; 22853 ×3; 72040; 76000; 82962; 94640; 97116; 97162; 97165; 97535; C1776; G0378; J0171; J0330; J0690; J1100; J1885; J2250; J2405; J2704; J7613

== ENCOUNTER 2022-06-02 12:18 | Emergency (ER) | payer OTHER, SELFPAY ==
[2021-08-21 14:18] VITALS: BMI 23.1
[2022-06-02] VITALS (9 sets, daily range): BP systolic 130–145; BP diastolic 86–97; PULSE 61–81; RESP 18; TEMP 36.6; O2SAT 97–100; BMI 23.5
--- NOTE | 2022-06-02 12:25 | DI.RAD.S_ITS ---
PROCEDURE: XR CHEST 1V INDICATIONS: chest pain TECHNIQUE: One view of the chest was acquired. COMPARISON: [facility], , CHEST 1 VIEW, 02/18/2018, 12:35. FINDINGS: Surgical changes and devices: Cervical spine fixation hardware is partially seen. Lungs and pleura: Lungs are clear. No pleural effusions or pneumothorax. Mediastinum: Mediastinal contours appear normal. Heart size is normal. Bones and chest wall: No suspicious bony lesions. Overlying soft tissues appear unremarkable. IMPRESSION: Unremarkable portable chest. Dictated by: Faizan Rios M.D. on 06/02/2022 at 12:34 Approved by: Faizan Rios M.D. on 06/02/2022 at 12:34
[2022-06-02 12:37] LABS: Add Manual Diff / Slide Review NO; Basophils Absolute Auto 0 /uL (0-100); Basophils Percent Auto 0.5 % (0-2); Eosinophils Absolute Auto 300 /uL (0-450); Eosinophils Percent Auto 5.4 % (2-4); Hematocrit 37.6 % (36-46); Hemoglobin 12.8 g/dL (12.0-16.0); Lymphocytes Absolute Auto 1600 /uL (1100-4500); Lymphocytes Percent Auto 25.5 % (25-40); Mean Corpuscular HGB Conc 34.1 % (30-36); Mean Corpuscular Hemoglobin 28.9 PG (26-34); Mean Corpuscular Volume 84.7 fL (80-100); Monocytes Absolute Auto 500 /uL (0-900); Neutrophils Absolute Auto 3800 /uL (1500-7000); Neutrophils Percent Auto 60.6 % (50-75); Platelet Count 242 X10^3/uL (150-400); Red Blood Cell Count 4.44 X10^6/uL (4.0-5.2); Red Cell Distribution Width 14.5 % (11.6-14.8); White Blood Cell Count 6.2 X10^3/uL (4.5-11.0)
[2022-06-02 12:57] LABS: Alanine Aminotransferase 20 IU/L (<35); Albumin 4.3 g/dL (3.5-5.0); Albumin Globulin Ratio 1.4 (1.0-2.8); Alkaline Phosphatase 78 U/L (38-126); Aspartate Aminotransferase 39 IU/L (14-36); BUN Creatinine Ratio 34.7 (6-22); Bilirubin Total 0.3 mg/dL (0.2-1.3); Blood Urea Nitrogen 25 mg/dL (7-17); Calcium 9.1 mg/dL (8.4-10.2); Carbon Dioxide 27 mmol/L (22-32); Chloride 108 mmol/L (98-107); Creatine Kinase 92 U/L (30-135); Estimated Glomerular Filt Rate > 60 mL/min (>60); Glucose 118 mg/dL (70-100); HEMOLYSIS 26 (0-50); Lipase 33 U/L (23-300); Magnesium 2.1 mg/dL (1.6-2.3); Potassium 3.8 mmol/L (3.4-5.1); Sodium 139 mmol/L (137-145); Total Protein 7.3 g/dL (6.3-8.2)
[2022-06-02 13:08] LABS: Troponin I < 0.012 ng/mL (0.01-0.034)
--- NOTE | 2022-06-02 16:41 | ED.CHESTPAIN ---
HPI - Chest Pain <Robe RomeroPATRICK leo - Last Filed: 06/02/22 18:40> General Chief Complaint: Chest Pain Stated Complaint: chest pain Time Seen by Provider: 06/02/22 16:10 Source: patient Mode of arrival: Ambulatory Limitations: no limitations History of Present Illness HPI narrative: 51-year-old female, former smoker, presents to the emergency department with a midsternal burning chest pain that started around 11:00 a.m. today. Patient denies any diaphoresis, radiation of pain, etc.. No personal or familial cardiac history. Patient denies any significant coffee or alcohol intake. Patient does take a daily Prilosec to counteract her medication adverse reactions. Patient reports that she had similar symptoms when she was under increased amount of stress, that was worked up in the emergency department, and everything was found negative. Patient reports that her stress is significantly less at work and at home. Related Data Home Medications Medication Instructions Recorded Confirmed fluticasone propionate 110 2 spray INH QAM ##0 05/08/12 08/21/21 mcg/actuation HFA aerosol inhaler (Flovent HFA) loratadine 10 mg tablet (Claritin) 10 mg PO QDAY ##0 05/08/12 08/21/21 salmeterol 50 mcg/dose blister 1 inh inhalation QAM ##0 05/08/12 08/21/21 powder for inhalation azelastine 137 mcg (0.1 %) nasal 1 spray intranasal QAM PRN 08/19/21 08/19/21 spray aerosol seasonal allergies meloxicam 7.5 mg tablet 7.5 mg PO DAILY 08/19/21 08/21/21 omeprazole 20 mg capsule,delayed 20 mg PO DAILY 08/19/21 08/21/21 release Previous Rx's Medication Instructions Recorded acetaminophen 500 mg capsule 500 mg PO Q4H PRN Pain, Mild (1-3) 08/22/21 #90 caps hydroxyzine pamoate 25 mg capsule 25 mg PO Q4HR PRN pain, spasms, 08/22/21 nausea #60 caps Allergies Allergy/AdvReac Type Severity Reaction Status Date / Time adhesive tape Allergy Severe Rash Verified 08/21/21 06:51 iodine [IODINE] Allergy Severe ANAPHYLAXIS Verified 08/21/21 06:51 morphine Allergy Severe Trouble Verified 08/21/21 06:51 breathing, bugs crawling over me shellfish derived Allergy Severe Anaphylaxis Verified 08/21/21 06:51 [SHELLFISH DERIVED] chlorhexidine Allergy Intermediate Rash Verified 08/21/21 07:12 gabapentin Allergy Intermediate Verified 08/21/21 07:31 latex Allergy Intermediate ITCHING Verified 08/21/21 06:51 venom-honey bee Allergy Mild Anaphylaxis Verified 08/21/21 06:51 [BEE VENOM (HONEY BEE)] acetaminophen AdvReac Severe Vomiting, Verified 08/21/21 06:51 [From Darvocet-N] headache, shakes codeine AdvReac Severe Throat Verified 08/21/21 06:51 closing, migraines, vomiting propoxyphene AdvReac Severe Vomiting, Verified 08/21/21 06:51 [From Darvocet-N] headache, shakes tramadol AdvReac Severe Vomiting, Verified 08/21/21 06:51 migraines aspirin [ASPIRIN] AdvReac Mild N/V Verified 08/21/21 06:51 etodolac [From LODINE] AdvReac Mild N/V Verified 08/21/21 06:51 meperidine [From DEMEROL] AdvReac Mild N/V Verified 08/21/21 06:51 oxycodone [OXYCODONE] AdvReac Mild N/V Verified 08/21/21 06:51 scopolamine AdvReac Verified 08/21/21 10:50 Review of Systems <PATRICK Patel - Last Filed: 06/02/22 18:40> Review of Systems Narrative: Narrative: GENERAL: Denies chills, fatigue, fever, sweats. See HPI HEENT: Denies sinus pain, ear pain, sore throat, difficulty swallowing, dizziness. RESPIRATORY: Denies dyspnea, cough, wheezing, sputum. CARDIOVASCULAR: Denies palpitations, edema. No familial cardiac history. GASTROINTESTINAL: Denies nausea, vomiting, abdominal pain, diarrhea, constipation. : Denies dysuria, frequency, incontinence, hematuria, urinary retention, flank pain. MSK: Denies weakness, joint pain, or bony pain. SKIN: Denies rash, skin lesions, or pruritis. NEUROLOGIC: Denies weakness, dizziness, headache, numbness, confusion. PSYCHIATRIC: No concerning psychosocial issues. Patient History <PATRICK Patel - Last Filed: 06/02/22 18:40> Medical History Anxiety Arthritis Asthma Depression Easy bruisability IBS (irritable bowel syndrome) Osteoarthritis Seasonal allergic reaction TMJ (dislocation of temporomandibular joint) Surgical History History of appendectomy History of hysterectomy Hx of hand surgery Hx of hand surgery Social History household members: spouse and children Smoking Status: Former smoker alcohol intake: current Smoking Status: Former smoker alcohol intake frequency: holidays/special occasions only Substance Use Type: does not use Exam <PATRICK Patel - Last Filed: 06/02/22 18:40> Narrative Exam Narrative: Exam Narrative: GENERAL: This is a well-nourished, well-developed patient, in no acute distress HEAD: Atraumatic. Normocephalic. EYES: Pupils equal round and reactive. Extraocular motions intact. No scleral icterus, injection or drainage. ENT: Nose without bleeding, purulent drainage. Throat without erythema, tonsillar hypertrophy or exudate. Airway patent. NECK: Trachea midline. No JVD or lymphadenopathy. Nontender. CARDIOVASCULAR: Regular rate and rhythm without murmurs, peripheral pulses intact, cap refill <2 sec. No chest pain during evaluation. RESPIRATORY: Breath sounds equal and clear bilaterally. No wheezes, rales, or rhonchi. No cough. No increased respiratory effort. No accessory muscle use. GASTROINTESTINAL: Abdomen soft, non-tender, nondistended without guarding or rebound. No suprapubic pain. MSK: Moves all extremities. Normal range of motion, no clubbing or edema. Neurovascularly intact. NEURO: A&O x 3. SKIN: Warm, dry, no rashes or lesions noted. Initial Vital Signs Initial Vital Signs: Vital Signs Temperature 97.9 F 06/02/22 12:19 Pulse Rate 77 06/02/22 12:19 Respiratory Rate 18 06/02/22 12:19 Blood Pressure 145/90 H 06/02/22 12:19 Pulse Oximetry 98 06/02/22 12:19 Oxygen Delivery Method 06/02/22 12:19 Reviewed <Emmy Hackett DO - Last Filed: 06/06/22 08:31> Initial Vital Signs Initial Vital Signs: Vital Signs Temperature 97.9 F 06/02/22 12:19 Pulse Rate 77 06/02/22 12:19 Respiratory Rate 18 06/02/22 12:19 Blood Pressure 145/90 H 06/02/22 12:19 Pulse Oximetry 98 06/02/22 12:19 Oxygen Delivery Method 06/02/22 12:19 Scores <PATRICK Patel - Last Filed: 06/02/22 18:40> HEART Score Heart Score history: Slightly Suspicious Heart Score EKG: Normal Heart Score Age: 45-64 years old Heart Score risk factors: No known risk factors Heart Score troponin: < or = to normal limit Heart Score Total: 1 <Emmy Hackett DO - Last Filed: 06/06/22 08:31> HEART Score Heart Score Total: 1 Course <PATRICK Patel - Last Filed: 06/02/22 18:40> Orders Ordered: Discontinued Medications Al Hydrox/Mg Hydrox/Simethicone 20 ml/ Lidocaine HCl 15 ml 0 ml PO NOW ONE Stop: 06/02/22 16:54 Last Admin: 06/02/22 17:01 Dose: 35 ml Documented By: MLMaribel Nitroglycerin (Nitroglycerin 0.3 Mg Sl Tab) 0.3 mg SL NOW ONE Stop: 06/02/22 18:05 Last Admin: 06/02/22 18:06 Dose: Not Given Documented By: MLMaribel Nitroglycerin (Nitroglycerin 0.4 Mg Sl Tab) 0.4 mg SL NOW ONE Stop: 06/02/22 18:08 Last Admin: 06/02/22 18:09 Dose: 0.4 mg Documented By: MLMaribel Vital Signs Vital signs: Vital Signs - 8 hr 06/02/22 12:19 06/02/22 15:38 06/02/22 15:38 Temperature 97.9 F Pulse Rate 77 69 Respiratory Rate 18 Blood Pressure 145/90 H 137/88 Pulse Oximetry 98 97 Oxygen Delivery Method Room Air 06/02/22 16:00 06/02/22 16:00 06/02/22 16:30 Temperature Pulse Rate 69 Respiratory Rate Blood Pressure 130/88 141/91 H Pulse Oximetry 98 Oxygen Delivery Method 06/02/22 16:30 06/02/22 17:00 06/02/22 17:00 Temperature Pulse Rate 64 65 Respiratory Rate Blood Pressure 141/86 H Pulse Oximetry 100 100 Oxygen Delivery Method 06/02/22 17:30 06/02/22 17:30 06/02/22 18:00 Temperature Pulse Rate 81 Respiratory Rate Blood Pressure 145/97 H 144/96 H Pulse Oximetry 100 Oxygen Delivery Method 06/02/22 18:00 06/02/22 18:09 06/02/22 18:09 Temperature Pulse Rate 61 66 Respiratory Rate 18 Blood Pressure 145/96 H 145/96 H Pulse Oximetry 100 Oxygen Delivery Method 06/02/22 18:09 06/02/22 18:30 06/02/22 18:30 Temperature Pulse Rate 71 69 Respiratory Rate Blood Pressure 135/88 Pulse Oximetry 97 97 Oxygen Delivery Method <Emmy Hackett, - Last Filed: 06/06/22 08:31> Orders Ordered: Discontinued Medications Al Hydrox/Mg Hydrox/Simethicone 20 ml/ Lidocaine HCl 15 ml 0 ml PO NOW ONE Stop: 06/02/22 16:54 Last Admin: 06/02/22 17:01 Dose: 35 ml Documented By: MLMaribel Nitroglycerin (Nitroglycerin 0.3 Mg Sl Tab) 0.3 mg SL NOW ONE Stop: 06/02/22 18:05 Last Admin: 06/02/22 18:06 Dose: Not Given Documented By: RENEA Nitroglycerin (Nitroglycerin 0.4 Mg Sl Tab) 0.4 mg SL NOW ONE Stop: 06/02/22 18:08 Last Admin: 06/02/22 18:09 Dose: 0.4 mg Documented By: RENEA Vital Signs Vital signs: Vital Signs - 8 hr 06/02/22 12:19 06/02/22 15:38 06/02/22 15:38 Temperature 97.9 F Pulse Rate 77 69 Respiratory Rate 18 Blood Pressure 145/90 H 137/88 Pulse Oximetry 98 97 Oxygen Delivery Method Room Air 06/02/22 16:00 06/02/22 16:00 06/02/22 16:30 Temperature Pulse Rate 69 Respiratory Rate Blood Pressure 130/88 141/91 H Pulse Oximetry 98 Oxygen Delivery Method 06/02/22 16:30 06/02/22 17:00 06/02/22 17:00 Temperature Pulse Rate 64 65 Respiratory Rate Blood Pressure 141/86 H Pulse Oximetry 100 100 Oxygen Delivery Method 06/02/22 17:30 06/02/22 17:30 06/02/22 18:00 Temperature Pulse Rate 81 Respiratory Rate Blood Pressure 145/97 H 144/96 H Pulse Oximetry 100 Oxygen Delivery Method 06/02/22 18:00 06/02/22 18:09 06/02/22 18:09 Temperature Pulse Rate 61 66 Respiratory Rate 18 Blood Pressure 145/96 H 145/96 H Pulse Oximetry 100 Oxygen Delivery Method 06/02/22 18:09 06/02/22 18:30 06/02/22 18:30 Temperature Pulse Rate 71 69 Respiratory Rate Blood Pressure 135/88 Pulse Oximetry 97 97 Oxygen Delivery Method MDM - Chest Pain <PATRICK Patel - Last Filed: 06/02/22 18:40> Differential Diagnosis Differential diagnosis: Likely atypical chest pain and other (GERD) Lab Data Result diagrams: 06/02/22 12:26 06/02/22 12:26 Labs: Lab Results 06/02/22 06/02/22 06/02/22 Range/Units 12:26 12:26 15:55 WBC 6.2 (4.5-11.0) X10^3/uL RBC 4.44 (4.0-5.2) X10^6/uL Hgb 12.8 (12.0-16.0) g/dL Hct 37.6 (36-46) % MCV 84.7 (80-100) fL MCH 28.9 (26-34) PG MCHC 34.1 (30-36) % RDW 14.5 (11.6-14.8) % Plt Count 242 (150-400) X10^3/uL Neut % (Auto) 60.6 (50-75) % Lymph % (Auto) 25.5 (25-40) % [place] % (Auto) 8.0 (3-14) % Eos % (Auto) 5.4 H (2-4) % Baso % (Auto) 0.5 (0-2) % Neut # (Auto) 3800 (0153-8120) /uL Lymph # (Auto) 1600 (3182-1868) /uL [place] # (Auto) 500 (0-900) /uL Eos # (Auto) 300 (0-450) /uL Baso # (Auto) 0 (0-100) /uL Sodium 139 (137-145) mmol/L Potassium 3.8 (3.4-5.1) mmol/L Chloride 108 H (98-107) mmol/L Carbon Dioxide 27 (22-32) mmol/L BUN 25 H (7-17) mg/dL Creatinine 0.72 (0.52-1.04) mg/dL Estimated GFR > 60 (>60) mL/min BUN/Creatinine Ratio 34.7 H (6-22) Glucose 118 H (70-100) mg/dL Calcium 9.1 (8.4-10.2) mg/dL Magnesium 2.1 (1.6-2.3) mg/dL Total Bilirubin 0.3 (0.2-1.3) mg/dL AST 39 H (14-36) IU/L ALT 20 (<35) IU/L Alkaline Phosphatase 78 (38-126) U/L Total Creatine Kinase 92 (30-135) U/L CK-MB (CK-2) TNP CK-MB (CK-2) Rel Index TNP Troponin I < 0.012 < 0.012 (0.01-0.034) ng/mL Total Protein 7.3 (6.3-8.2) g/dL Albumin 4.3 (3.5-5.0) g/dL Globulin 3.0 (1.7-4.1) g/dL Albumin/Globulin Ratio 1.4 (1.0-2.8) Lipase 33 (23-300) U/L Imaging Data Chest x-ray: Radiologist's Impression: [address] [address] XRay Report Signed Patient: Lorena Jay MR#: [id number] : 1970 Acct:[id number] Age/Sex: 51 / F Date of Service: 06/02/22 Loc: ED Accession Number: [id number] ?? Procedure: XR chest 1V Ordering Provider: Emmy Hackett D.O. PROCEDURE:? XR CHEST 1V ? INDICATIONS:? chest pain ? TECHNIQUE:? One view of the chest was acquired.? ? COMPARISON:? [facility], , CHEST 1 VIEW, 02/18/2018, 12:35. ? FINDINGS:? ? Surgical changes and devices:? Cervical spine fixation hardware is partially seen. ? Lungs and pleura:? Lungs are clear.? No pleural effusions or pneumothorax.? ? Mediastinum:? Mediastinal contours appear normal.? Heart size is normal.? ? Bones and chest wall:? No suspicious bony lesions.? Overlying soft tissues appear unremarkable.? ? ? IMPRESSION:? Unremarkable portable chest. ? ? Dictated by: Faizan Rios M.D. on 06/02/2022 at 12:34 ? ? Approved by: Faizan Rios M.D. on 06/02/2022 at 12:34 ? ECG Data Attestation: I personally reviewed and interpreted this ECG as follows: Interpretation: NSR w/ vent rate of [address]-t changes. MDM Narrative Medical decision making narrative: 51-year-old female that presents emergency department with substernal burning pain that runs from the epigastric region to the top of the sternum. Chest x-ray, EKG and labs were all normal. Patient's pain improved but did not fully go away. Trial of GI cocktail was unsuccessful. Patient reports that her pain returned just prior to discharge, repeat EKG was identical to previous, and do not suspect that this is cardiac related. Discussed case with Dr. Hackett. Discussed options with patient and spouse, and decision was made to give a trial of nitroglycerin as due to her many allergies, Toradol and pain medications would not be advised. Single dose of nitroglycerin did not improve symptoms and patient and spouse were okay with being discharged. Discussed return precautions and plan of care with patient and spouse, who were agreeable with course of action. <Emmy Hackett, DO - Last Filed: 06/06/22 08:31> Lab Data Labs: Lab Results 06/02/22 06/02/22 06/02/22 Range/Units 12:26 12:26 15:55 WBC 6.2 (4.5-11.0) X10^3/uL RBC 4.44 (4.0-5.2) X10^6/uL Hgb 12.8 (12.0-16.0) g/dL Hct 37.6 (36-46) % MCV 84.7 (80-100) fL MCH 28.9 (26-34) PG MCHC 34.1 (30-36) % RDW 14.5 (11.6-14.8) % Plt Count 242 (150-400) X10^3/uL Neut % (Auto) 60.6 (50-75) % Lymph % (Auto) 25.5 (25-40) % [place] % (Auto) 8.0 (3-14) % Eos % (Auto) 5.4 H (2-4) % Baso % (Auto) 0.5 (0-2) % Neut # (Auto) 3800 (3095-9301) /uL Lymph # (Auto) 1600 (1046-8464) /uL [place] # (Auto) 500 (0-900) /uL Eos # (Auto) 300 (0-450) /uL Baso # (Auto) 0 (0-100) /uL Sodium 139 (137-145) mmol/L Potassium 3.8 (3.4-5.1) mmol/L Chloride 108 H (98-107) mmol/L Carbon Dioxide 27 (22-32) mmol/L BUN 25 H (7-17) mg/dL Creatinine 0.72 (0.52-1.04) mg/dL Estimated GFR > 60 (>60) mL/min BUN/Creatinine Ratio 34.7 H (6-22) Glucose 118 H (70-100) mg/dL Calcium 9.1 (8.4-10.2) mg/dL Magnesium 2.1 (1.6-2.3) mg/dL Total Bilirubin 0.3 (0.2-1.3) mg/dL AST 39 H (14-36) IU/L ALT 20 (<35) IU/L Alkaline Phosphatase 78 (38-126) U/L Total Creatine Kinase 92 (30-135) U/L CK-MB (CK-2) TNP CK-MB (CK-2) Rel Index TNP Troponin I < 0.012 < 0.012 (0.01-0.034) ng/mL Total Protein 7.3 (6.3-8.2) g/dL Albumin 4.3 (3.5-5.0) g/dL Globulin 3.0 (1.7-4.1) g/dL Albumin/Globulin Ratio 1.4 (1.0-2.8) Lipase 33 (23-300) U/L ECG Data Interpretation: NSR w/ vent rate of [address]-t changes. Sinus rhythm rate of 70 3p are 160 QRS is 78 QTC [address]. No acute ST changes appreciated. Q-wave in lead 3. EKG 2, sinus rhythm, rate of 65 MT 170 QRS [address] QTC [address] No acute ST elevation or depression noted. EKG 3, sinus rhythm, rate of 70 MT 182 QRS 84 and QTC 440. Q-wave noted in all 3. No acute ST elevation depression or dynamic changes noted. Discharge Plan Departure Patient Disposition: Home Clinical Impression: Atypical chest pain Instructions: DI for Gastroesophageal Reflux Disease (GERD), DI for Atypical Chest Pain Activity Restrictions/Additional Instructions: *You have been diagnosed with atypical chest pain. Your chest x-ray, EKG and labs were all normal. I do not suspect anything dangerous at this time. Please return to the emergency department if at any point the symptoms return. Otherwise, please follow-up with your family doctor this week. *What to do: *Please continue to take your regular medications as directed. [ ] New medication prescriptions sent to your pharmacy: [ ] [ ] New medication written as a paper prescription [ x] No new medications given *Please follow up with your primary care provider in 2-3 days, call for an appointment. Let them know you were seen in the Emergency Department and that we ask that you be seen in follow up. We will electronically transmit a record of today's note if your PCP is in our system *If you do not have a primary care provider please contact the [facility] Resource line at [phone]. They will ask some questions about your medical history and help get you set up with a doctor in the community. ? Return to ER if you should have any new, worsening or concerning symptoms, such as worsening pain, severe headache, confusion, chest pain, difficulty breathing, fever greater than 101 F, shaking chills, persistent vomiting to the point that you cannot drink fluids, or other new or worsening symptoms. Prescriptions: No Action salmeterol 50 mcg/dose Blister With Device 1 inh INHALATION QAM Qty: 0 loratadine [Claritin] 10 MG tablet 10 mg PO QDAY Qty: 0 Flovent HFA 12 GM HFA aerosol inhaler 2 spray INH QAM Qty: 0 meloxicam 7.5 mg Tablet 7.5 mg PO DAILY omeprazole 20 mg Capsule,Delayed Release(Dr/Ec) 20 mg PO DAILY azelastine 137 mcg (0.1 %) Aerosol,[place] 1 spray INTRANASAL QAM PRN (Reason: seasonal allergies) acetaminophen 500 mg capsule 500 mg PO Q4H PRN (Reason: Pain, Mild (1-3)) Qty: 90 0RF hydroxyzine pamoate 25 mg Capsule 25 mg PO Q4HR PRN (Reason: pain, spasms, nausea) Qty: 60 0RF Referrals: Lina Tay PA-C [Primary Care Provider] - Visit Report Forms: Patient Portal/API <Emmy Hackett DO - Last Filed: 06/06/22 08:31> Cosign ED Attending Faustinoature Attestation: I was immediately available in the department for consultation. Documentation has been reviewed.
[2022-06-02 16:49] LABS: Troponin I < 0.012 ng/mL (0.01-0.034)
[2022-06-02] MEDS: MAG HYDROX/ALUMINUM/SIMETH SUS 20 ML, LIDOCAINE VISCOUS 2% 15 ML PO (17:01)
[2022-06-02] MEDS: NITROGLYCERIN 0.4 MG SL TAB SL (18:09)
== END 2022-06-02 18:35 | disposition home or self-care (01) ==
PROVIDERS: Emergency Medicine; Emergency Provider Registered Nurse; PCP Physician Assistant Medical
DX: R07.89 Other chest pain (principal); R10.13 Epigastric pain
CPT/HCPCS: 36415; 71045; 80053; 82550; 83690; 83735; 84484; 85025; 93005; 93010; 99284

== ENCOUNTER → 2024-10-25 18:57 | Outpatient (CLI) | payer OTHER, SELFPAY ==
[2021-08-21 14:18] VITALS: BMI 23.1
--- NOTE | 2024-10-25 | DI.MRI.S_ITS ---
PROCEDURE: MR LUMBAR SPINE WO CON INDICATIONS: spinal stenosis TECHNIQUE: Noncontrast sagittal T1 spin echo and T2 fast echo, sagittal STIR, and T2 fast spin echo through the lumbar spine. In cases with scoliosis, additional coronal T2 fast spin echo may be performed. COMPARISON: None. FINDINGS: Image quality: Excellent. Alignment and Curvature: There is normal bony alignment. Bone Marrow: Marrow is of normal overall signal. No acute vertebral body compression fractures. Spinal Cord: Conus medullaris terminates at the L1-L2 level. Visualized cord demonstrates normal signal and size. Paraspinous Soft Tissues: No paravertebral masses. T12-L1: Normal appearance. L1-L2: Normal appearance. L2-L3: Normal appearance. L3-L4: Disc desiccation and minimal disc bulge. Facet arthropathy. No central canal or neural foraminal stenosis. L4-L5: Disc desiccation and mild diffuse disc bulge. Superimposed small left subarticular disc extrusion. Facet arthropathy and thickening of ligamentum flavum. Mild narrowing of the left lateral recess with abutment of the descending left L5 nerve root. No significant central canal or neural foraminal stenosis. L5-S1: Mild facet arthropathy. No central canal or neural foraminal stenosis. IMPRESSION: Mild degenerative changes of the lower lumbar spine as described above. There is a small left subarticular disc extrusion at L4-5 mildly narrowing the left lateral recess with abutment of the descending left L5 nerve root. No significant central canal or neural foraminal stenosis. Dictated by: Huang Ortiz M.D. on 10/27/2024 at 9:53 Approved by: Huang Ortiz M.D. on 10/27/2024 at 9:57
== END ==
PROVIDERS: PCP Physician Assistant Medical; Referring Provider Physical Medicine & Rehabilitation; Visit Provider Physical Medicine & Rehabilitation
DX: M48.062 Spinal stenosis, lumbar region with neurogenic claudication (principal); M47.816 Spondylosis without myelopathy or radiculopathy, lumbar region; M47.817 Spondylosis without myelopathy or radiculopathy, lumbosacral region; M51.26 Other intervertebral disc displacement, lumbar region
CPT/HCPCS: 72148

== ENCOUNTER → 2025-01-12 12:40 | Outpatient (CLI) | payer OTHER, SELFPAY ==
[2021-08-21 14:18] VITALS: BMI 23.1
--- NOTE | 2025-01-12 12:41 | DI.CT.S_ITS ---
PROCEDURE: CT CERVICAL SPINE WO CON INDICATIONS: Neck Pain, prior Cervical surgery TECHNIQUE: Noncontrast 3 mm thick sections acquired from the skull base to the T4 level. Sagittal and coronal reformats were then constructed. For radiation dose reduction, the following was used: automated exposure control, adjustment of mA and/or kV according to patient size. COMPARISON: [facility], MR, MR CERVICAL SPINE WITHOUT CONTRAST, 03/01/2020, 15:22. FINDINGS: Image quality: Excellent. Bones: Remote ACDF from C4 through C7 with anterior plate and screw fixation and interbody fusion material. No evidence of hardware failure or loosening. There is bony left foraminal narrowing at C5-C6 and C6-C7. There is bony right foraminal narrowing at C4-C5. There is an element of canal stenosis at the inferior C5 level. Osteopenia with mild superior endplate compressions of T2 and T3. These are likely chronic. Visualized superior ribs are intact. Soft tissues: Prevertebral soft tissues are normal in thickness. No paravertebral hematomas. No apical pneumothoraces. IMPRESSION: 1. No evidence of hardware failure or loosening. 2. Cervical spondylosis. 3. Diffuse osteopenia with mild chronic superior endplate compressions of T2 and T3. No acute compressions identified. Dictated by: Justin Veras M.D. on 01/12/2025 at 13:43 Approved by: Justin Veras M.D. on 01/12/2025 at 13:47
--- NOTE | 2025-01-12 12:42 | DI.MRI.S_ITS ---
PROCEDURE: MR CERVICAL SPINE WO CON INDICATIONS: Neck Pain, prior Cervical surgery TECHNIQUE: Noncontrast sagittal T1 spin echo and T2 fast spin echo, sagittal STIR, foraminal oblique sagittal T2 fast spin echo, and axial gradient echo or T2 fast spin echo through the cervical spine. COMPARISON: [facility], CT, CT CERVICAL SPINE WO CON, 01/12/2025, 12:48. FINDINGS: Image quality: Excellent. Alignment and Curvature: There is normal bony alignment. Remote ACDF at C4 through C7 with anterior plate and screw fixation and interbody fusion material present. Bone Marrow: Marrow demonstrates normal overall signal. No cervical compressions. Mild chronic compressions of T2 and T3. Spinal Cord: Visualized spinal cord has normal size and signal. No cerebellar tonsillar herniation. Paraspinous Soft Tissues: No paravertebral masses. Prevertebral soft tissues are normal in thickness. C2-C3: No canal stenosis or foraminal stenosis. C3-C4: Disc bulge. No canal stenosis. Bilateral uncovertebral joint hypertrophy, prominent on the right. There is also right facet hypertrophy. There is moderate right foraminal narrowing and flattening deformity on the exiting right C4 nerve root. There is mild left foraminal narrowing. C4-C5: Fused. Borderline canal stenosis. AP diameter of the central canal is 10.5 mm. Bilateral uncovertebral joint hypertrophy, right greater than left. Moderate to severe right foraminal narrowing with mild impingement on the exiting right C5 nerve root. There is mild left foraminal stenosis. C5-C6: Fused. [id number] canal stenosis. AP diameter of the central canal is 9.1 mm. Reference axial image 27 of series 4. Left uncovertebral joint hypertrophy and facet hypertrophy. There is moderate to severe left foraminal narrowing with a degree of left foraminal C6 nerve root impingement. C6-C7: Fused. [id number] central canal stenosis. AP diameter of the central canal is 9.1 mm. Bilateral uncovertebral joint hypertrophy. [id number] right foraminal narrowing and moderate left foraminal narrowing. C7-T1: No canal stenosis or foraminal stenosis. IMPRESSION: 1. Remote ACDF at C4 through C7. 2. [id number] canal stenosis at C5-C6 and C6-C7. 3. Multilevel foraminal narrowing as described above. Findings include moderate to severe right foraminal narrowing at C4-C5 and moderate to severe left foraminal narrowing at C5-C6. Dictated by: Justin Veras M.D. on 01/12/2025 at 14:47 Approved by: Justin Veras M.D. on 01/12/2025 at 14:56
--- NOTE | 2025-01-12 12:42 | DI.MRI.S_ITS ---
PROCEDURE: MR THORACIC SPINE WO CON INDICATIONS: Neck Pain, prior Cervical surgery TECHNIQUE: Noncontrast sagittal T1 spine echo and T2 fast spin echo, sagittal STIR, and T2 fast spin echo through the thoracic spine. COMPARISON: [facility], CT, CT CERVICAL SPINE WO CON, 01/12/2025, 12:48. FINDINGS: Image quality: Excellent. Alignment and Curvature: There is normal bony alignment. Bone Marrow: Marrow is of normal overall signal. No acute vertebral body compression fractures. Mild chronic compressions of T2, T3, T7, T8. Diffuse osteopenia on the CT. Spinal Cord: Visualized spinal cord is normal in size and signal. Paraspinous Soft Tissues: No paravertebral masses. Miscellaneous: On axial images, central canal and foramina appear widely patent at all scanned levels. There is a moderate right paracentral disc protrusion at T9-T10 mildly indenting on the cord without canal stenosis. There is no foraminal stenosis. Reference sagittal image 8 of series 6 and axial image 30 of series 9. Other levels are all unremarkable. IMPRESSION: 1. No acute compression fracture. 2. Moderate right paracentral disc protrusion at T9-T10 mildly indents on the cord without canal stenosis. 3. No canal stenosis or foraminal stenosis. 4. Possible severe osteoporosis. There are 4 chronic mild compressions. Comment: Recommend DEXA bone densitometry. Dictated by: Justin Veras M.D. on 01/12/2025 at 14:43 Approved by: Justin Veras M.D. on 01/12/2025 at 14:47
== END ==
PROVIDERS: PCP Physician Assistant Medical; Referring Provider Physician Assistant; Visit Provider Physician Assistant
DX: M47.812 Spondylosis without myelopathy or radiculopathy, cervical region (principal); M51.24 Other intervertebral disc displacement, thoracic region; M48.02 Spinal stenosis, cervical region; R20.2 Paresthesia of skin; R29.2 Abnormal reflex; Z98.1 Arthrodesis status
CPT/HCPCS: 72125; 72141; 72146

== ENCOUNTER → 2025-03-23 13:01 | Outpatient (CLI) | payer OTHER, SELFPAY ==
[2021-08-21 14:18] VITALS: BMI 23.1
--- NOTE | 2025-03-23 13:02 | DI.RAD.S_ITS ---
PROCEDURE: XR DEXA AXIAL SKELETON INDICATIONS: POST SURGICAL MENOPAUSE COMPARISON: None. FINDINGS: Lumbar Spine: Bone mineral density 0.70 to g/cm2, T score -3.1. Left Femoral Neck: Bone mineral density 0.599 g/cm2, T score -2.3. Left Hip: Bone mineral density 0.724 g/cm2, T score -1.8. Fracture Risk Calculation (when applicable): 10-year fracture risk of a major osteoporotic fracture 8.3 percent and of a hip fracture 1.2 percent. (T score greater or equal to -1.0 to: NORMAL) (T score from -1.1 to -2.4: OSTEOPENIA) (T score less than or equal to -2.5: OSTEOPOROSIS) IMPRESSION: Osteoporosis by WHO classification. Follow-up guidelines as follows: Osteoporosis: Consider a repeat DEXA and Vertebral Fracture Assessment (VFA) exam in 2 years or sooner if medically necessary, to reassess this patient's status. Osteopenia: Consider a repeat DEXA in 2-3 years to reassess this patient's status, or if there is a new clinical indication. Normal: Consider a repeat DEXA in 5 years or sooner, or if there is a new clinical indication. All treatment decisions require clinical judgment and consideration of individual patient factors, including patient preferences, comorbidities, previous drug use, risk factors not captured in the FRAX model (e.g., frailty, falls, vitamin D deficiency, increased bone turnover, interval significant decline in bone density ) and possible under- or over-estimation of fracture risk by FRAX. In addition, the NOF Guide recommends that FDA-approved medical therapies be considered in postmenopausal women and men age >= 50 years with a: * Hip or vertebral (clinical or morphometric) fracture * T-score of <=-2.5 at the spine or hip * Ten-year fracture probability by FRAX of >= 3% for hip fracture or >=20% for major osteoporotic fracture. Dictated by: Huang Ortiz M.D. on 03/23/2025 at 16:27 Approved by: Huang Ortiz M.D. on 03/23/2025 at 16:28
== END ==
PROVIDERS: PCP Physician Assistant Medical; Referring Provider Physician Assistant Medical; Visit Provider Physician Assistant Medical
DX: E89.40 Asymptomatic postprocedural ovarian failure (principal); M81.0 Age-related osteoporosis without current pathological fracture
CPT/HCPCS: 77080